=== PATIENT | female | born 1965 | race Caucasian/White ===

== ENCOUNTER → 2018-05-23 17:29 | Outpatient (CLI) | payer MEDICAID ==
[~2018-05-23 17:29] MED LIST: LEVAQUIN750 MG PO; NORCO 7.5/325 T1 TA1 PO; OMEPRAZOLE20 M1 PO; PEPCID AC20 MG PO; PROPRANOLOL HCL20 MG PO; REXULTI1 MG PO; TRAZODONE HCL150 MG PO; ULTRAM50 MG PO; VIBRAMYCIN 100100 MG PO
[2018-06-04 12:49] VITALS: BMI 32.2
== END | disposition home or self-care (01) ==
LOC: D.MAMMO 13:15
DX: Z12.31 Encounter for screening mammogram for malignant neoplasm of breast (principal)

== ENCOUNTER 2018-05-30 09:10 | Inpatient (IN) | payer MEDICAID ==
[~2018-05-30] VITALS: Ht 162.6 cm; Wt 84.5 kg
--- NOTE | ~2018-05-30 | CN ---
PATIENT NAME:GABRIELA RAHMAN MEDICAL RECORD: [id number] : 69 LOCATION:D. D.2128 ADMIT DATE: 05/30/18 ACCOUNT: [id number] CONSULTING PHYSICIAN: MERLYN VICTOR MD REFERRING PHYSICIAN: MARKIE PORTER MD DATE OF CONSULTATION: 06/02/2018 CONSULT REQUESTING PHYSICIAN: Marty Lazo MD REASON FOR CONSULTATION: Pneumonia, right lower lobe; right pleural effusion. HISTORY OF PRESENT ILLNESS: Ms. Rahman is a 52-year-old female who is sick for the last few days. She was treated locally, but not getting any better, came into the ER, found out the patient has a right-sided lower lobe pneumonia and pleural effusion. She still have some pleuritic type of right-sided chest pain, worse with coughing and deep breathing. Also, she has a fever and chill and shortness of breath and mild exertion. She is not wheezing. REVIEW OF SYSTEMS: As in history of present illness. PAST MEDICAL HISTORY: Nonsignificant. ALLERGIES: SHE IS ALLERGIC TO PENICILLIN. MEDICATIONS: On Axtria is reviewed. PERSONAL AND SOCIAL HISTORY: The patient is smoking some time. She is also drinking occasionally, but she is not passing out. FAMILY HISTORY: Noncontributory. PHYSICAL EXAMINATION: GENERAL: Now, the patient is lying comfortably in bed. She is not in acute respiratory distress. VITAL SIGNS: The blood pressure 111/62, pulse is 110, respiration is 19, temperature 99.1, SpO2 is 94% on 2 liters nasal cannula. HEENT: Conjunctivae are pink. Sclerae are not icteric. NECK: Supple, no JVD. CHEST: The chest excursion is minimal on both sides, crackle at the right base. There is dullness on percussion. HEART: Rhythm regular, normal sound, no murmur. ABDOMEN: Soft, bowel sounds present. No hepatosplenomegaly. RECTAL: Deferred. EXTREMITIES: No cyanosis, no clubbing, no pedal edema. LABORATORY DATA: CBC: WBC on admission was 19,000, hemoglobin 11.6, hematocrit 36.4. Chemistry: Sodium 139, potassium 3.7. ABG: The pH is 7.44, pCO2 is 34.4, the bicarbonate is 23.5. IMAGING DATA: CT of the chest; there was no PE, but there was a right lower lobe pneumonia and small right pleural effusion. Repeat chest x-ray showed worsening right-sided pleural effusion. IMPRESSION: 1. Acute hypoxic respiratory failure. CONSULT REPORT [id number] GABRIELA RAHMAN 2. Pneumonia, right lower lobe, most likely community-acquired pneumonia. 3. Pleurisy secondary to pneumonia. 4. Right pleural effusion, which is parapneumonic. 5. Leukocytosis secondary to pneumonia. 6. Tobacco dependence syndrome. RECOMMENDATION: 1. Continue Levaquin. I will add vancomycin and cefepime to cover for Gram-negative alexis as well as questionable MRSA. 2. Proceed with thoracentesis in the morning. 3. Pain control. 4. Supplemental oxygen. 5. Follow up labs and chest radiograph. Hold the Lovenox prior to the procedure. Dr. Lazo, thank you for involving me in the care of Ms. Rahman. TRANSINT:[id number] Voice Confirmation ID: [id number] DOCUMENT ID: [id number] MERLYN VICTOR MD at 1711 CC: [id number] DICTATION DATE: 06/02/18 182 SMUDGER: 06/02/[address] [facility] [address] [place] [id number]
--- NOTE | ~2018-05-30 | MORECARE ---
CASE MANAGEMENT DISCHARGE SUMMARY PATIENT: GABRIELA ARREDONDO UNIT: [id number] ADM DATE: 05/30/18 AGE: 52 : [birth year] SEX: F ROOM/BED: D.2061 AUTHOR: MARILEE,DOC PHYSICIAN: REFERRING PHYSICIAN: MARKIE PORTER MD DATE OF SERVICE: 06/07/18 Discharge Plan Patient Name: GABRIELA ARREDONDO Facility: [facility]:[place] : 1965 Planned Disposition: Home Anticipated Discharge Date: 06/07/18 Discharge Date: 06/07/2018 Expected LOS: 8 Initial Reviewer: [email or web address] Initial Review Date: 06/07/2018 Generated: 06/07/18 6:54 pm Comments DCP- Discharge Planning Updated by [email or web address]: Uma Randall on 06/07/18 4:[address] Patient Name: GABRIELA ARREDONDO Admission Status: ER Accout number: [id number] Admission Date: 05-30-2018 : 1965 Admission Diagnosis:SHORTNESS OF BREATH Attending: MARKIE PORTER Current LOS: 8 Anticipated DC Date: 06-07-2018 Planned Disposition: Home Primary Insurance: [place] [employer] [facility] Discharge Planning Comments: CM MET WITH PATIENT ABOUT DC PLANNING/NEEDS. PATIENT STATES IS DISCHARGING TO HOME TODAY. 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 DENIES ANY NEEDS AT HOME. PATIENT IS INDEPENDANT WITH ADL'S. HAS A WALKER BUT STATES DOESN'T USE IT, STATES HAD IT FROM SOME OTHER TIME. CM WILL FOLLOW AND ASSIST NEEDED WITH DC PLANNING/NEEDS Software Team Leader: Uma Randall DCPIA - Discharge Planning Initial Assessment Updated by [email or web address]: Uma Randall on 06/07/18 5:46 pm * Is the patient Alert and Oriented? Yes * PCP [facility] * Pharmacy [facility] ON [facility] [address] * Preadmission Environment Home with Family * ADLs Independent * Equipment Nebulizer Walker * List name and contact numbers for known caregivers / representatives who currently or will assist patient after discharge: BURT ARREDONDO, * Community resources currently utilized None * Additional services required to return to the preadmission environment? No * Can the patient safely return to the preadmission environment? Yes * Has this patient been hospitalized within the prior 30 days at any hospital? No Last DP export: 06/07/18 4:47 p Patient Name: GABRIELA ARREDONDO Page [id number] at 1754 All edits/amendments must be made on the electronic document DICTATION DATE: 06/07/181752 GEAR CUTTING MACHINE OPERATOR: PRIYA 06/07/181752 RPT#: [id number] DC DATE:06/07/18 STATUS: DIS IN [facility] [address] [place] [address] END OF REPORT
--- NOTE | ~2018-05-30 | MORECARE ---
CASE MANAGEMENT DISCHARGE SUMMARY PATIENT: GABRIELA ARREDONDO UNIT: [id number] ADM DATE: 05/30/18 AGE: 52 : 69 SEX: F ROOM/BED: D.7484 AUTHOR: THOMAS HUNT PHYSICIAN: REFERRING PHYSICIAN: MARKIE PORTER MD DATE OF SERVICE: 06/07/18 Discharge Plan Patient Name: GABRIELA ARREDONDO Facility: [facility]:[place] : 1965 Planned Disposition: Home Anticipated Discharge Date: 06/07/18 Discharge Date: Expected LOS: 8 Initial Reviewer: [email or web address] Initial Review Date: 06/07/2018 Generated: 06/07/18 6:47 pm DCPIA - Discharge Planning Initial Assessment Updated by [email or web address]: Uma Randall on 06/07/18 5:46 pm * Is the patient Alert and Oriented? Yes * PCP [facility] * Pharmacy [facility] ON [facility] * Preadmission Environment Home with Family * ADLs Independent * Equipment Nebulizer Walker * List name and contact numbers for known caregivers / representatives who currently or will assist patient after discharge: BURT ARREDONDO, * Community resources currently utilized None * Additional services required to return to the preadmission environment? No * Can the patient safely return to the preadmission environment? Yes * Has this patient been hospitalized within the prior 30 days at any hospital? No Patient Name: GABRIELA ARREDONDO Page [phone] at 1747 All edits/amendments must be made on the electronic document DICTATION DATE: 06/07/181745 SPIRAL WINDING MACHINE HELPER: PRIYA 06/07/181745 RPT#: [id number] DC DATE: STATUS: ADM IN [facility] [address] [place] [address] END OF REPORT
--- NOTE | ~2018-05-30 | MORECARE ---
CASE MANAGEMENT DISCHARGE SUMMARY PATIENT: GABRIELA ARREDONDO UNIT: [id number] ADM DATE: 05/30/18 AGE: 52 : 69 SEX: F ROOM/BED: D.0838 AUTHOR: MARILEE,DOC PHYSICIAN: REFERRING PHYSICIAN: MARKIE PORTER MD DATE OF SERVICE: 06/09/18 Discharge Plan Patient Name: GABRIELA ARREDONDO Facility: [facility]:[place] : 1965 Planned Disposition: Home Anticipated Discharge Date: 06/07/18 Discharge Date: 06/07/2018 Expected LOS: 8 Initial Reviewer: [email or web address] Initial Review Date: 06/07/2018 Generated: 06/09/18 11:03 am Comments DCP- Discharge Planning Updated by [email or web address]: Uma Randall on 06/07/18 4:[address] Patient Name: GABRIELA ARREDONDO Admission Status: ER Accout number: [id number] Admission Date: 05-30-2018 : 1965 Admission Diagnosis:SHORTNESS OF BREATH Attending: MARKIE PORTER Current LOS: 8 Anticipated DC Date: 06-07-2018 Planned Disposition: Home [place] Insurance[place] [employer] [place] [facility] Discharge Planning Comments: CM MET WITH PATIENT ABOUT DC PLANNING/NEEDS. PATIENT STATES IS DISCHARGING TO HOME TODAY. 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 DENIES ANY NEEDS AT HOME. PATIENT IS INDEPENDANT WITH ADL'S. HAS A WALKER BUT STATES DOESN'T USE IT, STATES HAD IT FROM SOME OTHER TIME. CM WILL FOLLOW AND ASSIST NEEDED WITH DC PLANNING/NEEDS Team Member: Uma Randall DCPIA - Discharge Planning Initial Assessment Updated by [email or web address]: Uma Randall on 06/07/18 5:46 pm * Is the patient Alert and Oriented? Yes * PCP [facility] * Pharmacy [facility] ON [facility] [address] * Preadmission Environment Home with Family * ADLs Independent * Equipment Nebulizer Walker * List name and contact numbers for known caregivers / representatives who currently or will assist patient after discharge: BURT ARREDONDO, * Community resources currently utilized None * Additional services required to return to the preadmission environment? No * Can the patient safely return to the preadmission environment? Yes * Has this patient been hospitalized within the prior 30 days at any hospital? No Last DP export: 06/07/18 4:54 p Patient Name: GABRIELA ARREDONDO Page [phone] at 1004 All edits/amendments must be made on the electronic document DICTATION DATE: 06/09/18 1003 CHEF FRENCH: PRIYA 06/09/18 1003 RPT#: [id number] DC DATE:06/07/18 STATUS: DIS IN [facility] [address] [place] [address] END OF REPORT
[2018-05-30] MEDS ORDERED: ULTRAM50 MG PO (09:15)
[2018-05-30] MEDS ORDERED: NORCO 7.5/325 T1 TA1 PO (10:25)
[2018-05-30] MEDS ORDERED: LEVAQUIN750 MG PO (10:25)
[2018-05-30 12:53] LABS: BASOPHILS 0.1 % (0-2); EOSINOPHILS 0.2 % (0-7); HEMATOCRIT 40.5 % (36.0-48.0); HEMOGLOBIN 13.6 g/dL (12-16); IMMATURE GRANULOCYTES 0.5 % (0-5); MCH 30.4 pg (26.0-34.0); MCHC 33.6 g/dL (31.0-37.0); MCV 90.6 fL (80.0-100.0); MEAN PLATELET VOLUME 9.1 fL (7.4-10.4); MONOCYTES 4.3 % (2-11); NEUTROPHILS 88.9 % (40-80); PLATELET COUNT 336 10x3/uL (130-400); RBC 4.47 10x6/uL (4.00-5.40); RDW 12.4 % (11.5-14.5); WBC 17.5 10x3/uL (4.8-10.8)
[2018-05-30 13:13] LABS: ALBUMIN 3.2 g/dL (3.4-5.0); ALKALINE PHOSPHATASE 89 U/L (46-116); ALT (SGPT) 14 U/L (10-68); BILIRUBIN - TOTAL 0.47 mg/dL (0.2-1.3); CALC OSMOLALITY 260 mosm/kg (275-300); CALCIUM 9.8 mg/dL (8.5-10.1); CARBON DIOXIDE 24.6 mmol/L (21.0-32.0); CHLORIDE - SERUM 93 mmol/L (98-107); CREATININE - SERUM 0.7 mg/dL (0.6-1.3); GLUCOSE 99 mg/dL (74-106); MAGNESIUM - SERUM 1.8 mg/dL (1.8-2.4); POTASSIUM - SERUM 3.7 mmol/L (3.5-5.1); PROTEIN - SERUM 8.3 g/dL (6.4-8.2); SODIUM 131 mmol/L (136-145); UREA NITROGEN 8 mg/dL (7-18); eGFR NON AFRICAN AMERICAN > 90 mL/min (90-120)
[2018-05-30] MEDS ORDERED: TRAZODONE HCL150 MG PO (13:59)
[2018-05-30] MEDS ORDERED: PEPCID AC20 MG PO (14:01)
[2018-05-30] MEDS ORDERED: OMEPRAZOLE20 M1 PO (14:02)
[2018-05-30] MEDS ORDERED: REXULTI1 MG PO (14:03)
[2018-05-30] MEDS ORDERED: PROPRANOLOL HCL20 MG PO (14:06)
[2018-05-30 14:36] VITALS: BP 129/73; BMI 31.6
[2018-05-30 15:43] VITALS: BP 129/79
[2018-05-30 19:58] VITALS: BP 123/66
[2018-05-30 23:30] VITALS: BP 127/68
[2018-05-31 03:50] VITALS: BP 114/54
[2018-05-31 05:50] LABS: BASOPHILS 0.1 % (0-2); EOSINOPHILS 0 % (0-7); HEMATOCRIT 36.8 % (36.0-48.0); HEMOGLOBIN 12.2 g/dL (12-16); IMMATURE GRANULOCYTES 0.4 % (0-5); LYMPHOCYTES 6.6 % (15-50); MCHC 33.2 g/dL (31.0-37.0); MCV 90.6 fL (80.0-100.0); MEAN PLATELET VOLUME 9.7 fL (7.4-10.4); MONOCYTES 6.6 % (2-11); NEUTROPHILS 86.3 % (40-80); PLATELET COUNT 334 10x3/uL (130-400); RBC 4.06 10x6/uL (4.00-5.40); RDW 12.4 % (11.5-14.5)
[2018-05-31 06:15] LABS: CALC OSMOLALITY 273 mosm/kg (275-300); CALCIUM 9.6 mg/dL (8.5-10.1); CARBON DIOXIDE 27.6 mmol/L (21.0-32.0); CHLORIDE - SERUM 99 mmol/L (98-107); CREATININE - SERUM 0.6 mg/dL (0.6-1.3); GLUCOSE 146 mg/dL (74-106); POTASSIUM - SERUM 3.5 mmol/L (3.5-5.1); SODIUM 136 mmol/L (136-145); UREA NITROGEN 10 mg/dL (7-18); eGFR NON AFRICAN AMERICAN > 90 mL/min (90-120)
[2018-05-31 07:50] VITALS: BP 131/76
[2018-05-31 13:47] LABS: APPEARANCE CLEAR (CLEAR); BILIRUBIN NEGATIVE (NEGATIVE); COLOR YELLOW (YELLOW); GLUCOSE NEGATIVE (NEGATIVE); KETONE NEGATIVE (NEGATIVE); NITRITE NEGATIVE (NEGATIVE); PROTEIN NEGATIVE (NEGATIVE); UROBILINOGEN NORMAL (NORMAL)
[2018-05-31 13:49] LABS: BACTERIA MODERATE /hpf (NONE SEEN); EPITHELIAL CELLS 0-5 /hpf (0-5); RED CELLS - URINE 0-5 /hpf (0-5); WHITE CELLS - URINE 0-5 /hpf (0-5)
[2018-05-31 15:11] VITALS: BP 138/71
[2018-05-31 19:45] VITALS: BP 113/62
[2018-05-31 23:50] VITALS: BP 102/44
[2018-06-01 03:45] VITALS: BP 117/62
[2018-06-01 06:21] LABS: BASOPHILS 0.1 % (0-2); EOSINOPHILS 0.6 % (0-7); HEMATOCRIT 35.9 % (36.0-48.0); HEMOGLOBIN 11.7 g/dL (12-16); IMMATURE GRANULOCYTES 0.5 % (0-5); LYMPHOCYTES 16.6 % (15-50); MCH 29.6 pg (26.0-34.0); MCHC 32.6 g/dL (31.0-37.0); MCV 90.9 fL (80.0-100.0); MEAN PLATELET VOLUME 9.8 fL (7.4-10.4); MONOCYTES 7.1 % (2-11); NEUTROPHILS 75.1 % (40-80); PLATELET COUNT 357 10x3/uL (130-400); RBC 3.95 10x6/uL (4.00-5.40); RDW 12.6 % (11.5-14.5); WBC 16.3 10x3/uL (4.8-10.8)
[2018-06-01 06:38] LABS: CALCIUM 8.8 mg/dL (8.5-10.1); CARBON DIOXIDE 27.9 mmol/L (21.0-32.0); CHLORIDE - SERUM 101 mmol/L (98-107); GLUCOSE 100 mg/dL (74-106); SODIUM 138 mmol/L (136-145); eGFR NON AFRICAN AMERICAN 80 mL/min (90-120)
[2018-06-01 06:43] LABS: CALC OSMOLALITY 276 mosm/kg (275-300); CREATININE - SERUM 0.8 mg/dL (0.6-1.3); UREA NITROGEN 14 mg/dL (7-18)
[2018-06-01 08:13] VITALS: BP 114/98
[2018-06-01 11:28] VITALS: BP 121/75
[2018-06-01 16:35] VITALS: BP 112/63
[2018-06-01 20:52] VITALS: BP 99/53
[2018-06-02] VITALS: BP 96/46
[2018-06-02 05:56] LABS: BASOPHILS 0.2 % (0-2); EOSINOPHILS 2.8 % (0-7); HEMATOCRIT 36.4 % (36.0-48.0); HEMOGLOBIN 11.6 g/dL (12-16); IMMATURE GRANULOCYTES 0.7 % (0-5); LYMPHOCYTES 25.7 % (15-50); MCH 29.4 pg (26.0-34.0); MCHC 31.9 g/dL (31.0-37.0); MCV 92.4 fL (80.0-100.0); MEAN PLATELET VOLUME 8.7 fL (7.4-10.4); MONOCYTES 10.4 % (2-11); NEUTROPHILS 60.2 % (40-80); PLATELET COUNT 348 10x3/uL (130-400); RBC 3.94 10x6/uL (4.00-5.40); RDW 12.8 % (11.5-14.5)
[2018-06-02 06:09] LABS: CALC OSMOLALITY 275 mosm/kg (275-300); CALCIUM 8.4 mg/dL (8.5-10.1); CHLORIDE - SERUM 102 mmol/L (98-107); CREATININE - SERUM 0.8 mg/dL (0.6-1.3); GLUCOSE 87 mg/dL (74-106); POTASSIUM - SERUM 3.7 mmol/L (3.5-5.1); SODIUM 139 mmol/L (136-145); UREA NITROGEN 11 mg/dL (7-18); eGFR NON AFRICAN AMERICAN 80 mL/min (90-120)
[2018-06-02 06:12] LABS: WBC 11.3 10x3/uL (4.8-10.8)
[2018-06-02 08:06] VITALS: BP 108/61
[2018-06-02 11:40] VITALS: BP 111/62
[2018-06-02 16:03] VITALS: BP 97/55
[2018-06-02 19:00] VITALS: BP 118/65
[2018-06-03] VITALS (13 sets, daily range): BP systolic 101–138; BP diastolic 49–74
[2018-06-03 05:20] LABS: BASOPHILS 0.3 % (0-2); EOSINOPHILS 2.2 % (0-7); HEMATOCRIT 36.4 % (36.0-48.0); HEMOGLOBIN 11.7 g/dL (12-16); IMMATURE GRANULOCYTES 1.3 % (0-5); LYMPHOCYTES 14.1 % (15-50); MCH 29.5 pg (26.0-34.0); MCHC 32.1 g/dL (31.0-37.0); MCV 91.7 fL (80.0-100.0); MEAN PLATELET VOLUME 8.8 fL (7.4-10.4); MONOCYTES 12.5 % (2-11); NEUTROPHILS 69.6 % (40-80); PLATELET COUNT 380 10x3/uL (130-400); RBC 3.97 10x6/uL (4.00-5.40); RDW 12.6 % (11.5-14.5); WBC 13.6 10x3/uL (4.8-10.8)
[2018-06-03 05:42] LABS: CALC OSMOLALITY 274 mosm/kg (275-300); CALCIUM 8.6 mg/dL (8.5-10.1); CARBON DIOXIDE 28.5 mmol/L (21.0-32.0); CHLORIDE - SERUM 101 mmol/L (98-107); CREATININE - SERUM 0.8 mg/dL (0.6-1.3); GLUCOSE 124 mg/dL (74-106); POTASSIUM - SERUM 3.5 mmol/L (3.5-5.1); SODIUM 138 mmol/L (136-145); eGFR NON AFRICAN AMERICAN 80 mL/min (90-120)
[2018-06-03 06:22] LABS: UREA NITROGEN 7 mg/dL (7-18)
[2018-06-03 06:57] LABS: APTT 35.1 SECONDS (22.8-39.4); INR 1.2 (0.85-1.17); PROTIME 14.7 SECONDS (11.6-15.0)
[2018-06-03 11:51] LABS: PROTEIN - BODY FLUID 4.3 G/DL
[2018-06-03 13:15] LABS: MACROPHAGES BF 16 %; MESOTHELIALS BF 1 %; NEUT - BF 68 %
[2018-06-04 01:09] VITALS: BP 144/67
[2018-06-04 04:48] VITALS: BP 116/58
[2018-06-04 06:12] LABS: BASOPHILS 0.2 % (0-2); EOSINOPHILS 2.2 % (0-7); HEMATOCRIT 38.3 % (36.0-48.0); HEMOGLOBIN 12.7 g/dL (12-16); MCH 30.2 pg (26.0-34.0); MCHC 33.2 g/dL (31.0-37.0); MCV 91.2 fL (80.0-100.0); MEAN PLATELET VOLUME 9.1 fL (7.4-10.4); MONOCYTES 8.7 % (2-11); NEUTROPHILS 74.9 % (40-80); PLATELET COUNT 395 10x3/uL (130-400); RDW 12.8 % (11.5-14.5); WBC 15.8 10x3/uL (4.8-10.8)
[2018-06-04 06:33] LABS: CALC OSMOLALITY 271 mosm/kg (275-300); CALCIUM 8.7 mg/dL (8.5-10.1); CARBON DIOXIDE 27.7 mmol/L (21.0-32.0); CHLORIDE - SERUM 100 mmol/L (98-107); CREATININE - SERUM 0.7 mg/dL (0.6-1.3); GLUCOSE 112 mg/dL (74-106); POTASSIUM - SERUM 3.8 mmol/L (3.5-5.1); SODIUM 136 mmol/L (136-145); eGFR NON AFRICAN AMERICAN > 90 mL/min (90-120)
[2018-06-04 06:34] LABS: UREA NITROGEN 9 mg/dL (7-18)
[2018-06-04 08:09] VITALS: BP 118/57
[2018-06-04 11:25] VITALS: BP 136/65
[2018-06-04 12:49] VITALS: Ht 162.6 cm; Wt 84.5 kg
[2018-06-04 14:21] LABS: AFB SPECIMEN PROCESSING Concentration (()); FUNGUS STAIN Final report (())
[2018-06-04 16:00] VITALS: BP 94/43
[2018-06-04 20:08] LABS: ACID FAST SMEAR Negative (())
[2018-06-04 21:30] VITALS: BP 110/62
[2018-06-05 00:57] VITALS: BP 102/47
[2018-06-05 05:32] VITALS: BP 106/67
[2018-06-05 08:01] VITALS: BP 114/42
[2018-06-05 11:34] LABS: BASOPHILS 0.2 % (0-2); EOSINOPHILS 3.6 % (0-7); HEMATOCRIT 35.7 % (36.0-48.0); HEMOGLOBIN 11.7 g/dL (12-16); IMMATURE GRANULOCYTES 3.9 % (0-5); LYMPHOCYTES 17.7 % (15-50); MCH 29.5 pg (26.0-34.0); MCHC 32.8 g/dL (31.0-37.0); MCV 89.9 fL (80.0-100.0); MEAN PLATELET VOLUME 8.9 fL (7.4-10.4); MONOCYTES 14.2 % (2-11); NEUTROPHILS 60.4 % (40-80); PLATELET COUNT 377 10x3/uL (130-400); RBC 3.97 10x6/uL (4.00-5.40); RDW 12.7 % (11.5-14.5)
[2018-06-05 11:46] LABS: WBC 11.6 10x3/uL (4.8-10.8)
[2018-06-05 11:52] VITALS: BP 104/53
[2018-06-05 11:54] LABS: ALBUMIN 1.6 g/dL (3.4-5.0); ALKALINE PHOSPHATASE 90 U/L (46-116); ALT (SGPT) 20 U/L (10-68); BILIRUBIN - TOTAL 0.21 mg/dL (0.2-1.3); CALC OSMOLALITY 269 mosm/kg (275-300); CALCIUM 8.4 mg/dL (8.5-10.1); CARBON DIOXIDE 30.9 mmol/L (21.0-32.0); CHLORIDE - SERUM 101 mmol/L (98-107); CREATININE - SERUM 0.8 mg/dL (0.6-1.3); GLUCOSE 89 mg/dL (74-106); POTASSIUM - SERUM 3.8 mmol/L (3.5-5.1); PROTEIN - SERUM 5.8 g/dL (6.4-8.2); SODIUM 136 mmol/L (136-145); UREA NITROGEN 11 mg/dL (7-18); eGFR NON AFRICAN AMERICAN 80 mL/min (90-120)
[2018-06-05 15:20] VITALS: BP 92/55
[2018-06-05 21:34] VITALS: BP 106/43
[2018-06-06 01:20] VITALS: BP 107/49
[2018-06-06 06:22] LABS: BASOPHILS 0.2 % (0-2); EOSINOPHILS 3.4 % (0-7); HEMATOCRIT 34.9 % (36.0-48.0); HEMOGLOBIN 11.3 g/dL (12-16); IMMATURE GRANULOCYTES 3.8 % (0-5); LYMPHOCYTES 19.5 % (15-50); MCH 29.1 pg (26.0-34.0); MCHC 32.4 g/dL (31.0-37.0); MCV 89.9 fL (80.0-100.0); MONOCYTES 16.6 % (2-11); NEUTROPHILS 56.5 % (40-80); PLATELET COUNT 349 10x3/uL (130-400); RBC 3.88 10x6/uL (4.00-5.40); RDW 12.9 % (11.5-14.5); WBC 10.8 10x3/uL (4.8-10.8)
[2018-06-06 06:38] VITALS: BP 109/58
[2018-06-06 06:39] LABS: ALBUMIN 1.6 g/dL (3.4-5.0); ALKALINE PHOSPHATASE 93 U/L (46-116); CALC OSMOLALITY 272 mosm/kg (275-300); CALCIUM 8.5 mg/dL (8.5-10.1); CARBON DIOXIDE 28.4 mmol/L (21.0-32.0); CHLORIDE - SERUM 101 mmol/L (98-107); CREATININE - SERUM 0.6 mg/dL (0.6-1.3); GLUCOSE 93 mg/dL (74-106); POTASSIUM - SERUM 3.7 mmol/L (3.5-5.1); PROTEIN - SERUM 5.7 g/dL (6.4-8.2); SODIUM 137 mmol/L (136-145); UREA NITROGEN 10 mg/dL (7-18); eGFR NON AFRICAN AMERICAN > 90 mL/min (90-120)
[2018-06-06 06:40] LABS: ALT (SGPT) 31 U/L (10-68)
[2018-06-06 09:41] VITALS: BP 101/44
[2018-06-06 13:11] VITALS: BP 97/47
[2018-06-06 16:47] VITALS: BP 112/60
[2018-06-06 20:00] VITALS: BP 91/50
[2018-06-07] VITALS: BP 97/46
[2018-06-07 04:00] VITALS: BP 94/48
[2018-06-07 05:06] LABS: BASOPHILS 0.5 % (0-2); HEMOGLOBIN 11.2 g/dL (12-16); MCH 28.9 pg (26.0-34.0); MCV 90.4 fL (80.0-100.0); MEAN PLATELET VOLUME 8.7 fL (7.4-10.4); MONOCYTES 12.9 % (2-11); NEUTROPHILS 55.6 % (40-80); PLATELET COUNT 415 10x3/uL (130-400); RBC 3.87 10x6/uL (4.00-5.40); WBC 9.4 10x3/uL (4.8-10.8)
[2018-06-07 05:38] LABS: ALBUMIN 1.7 g/dL (3.4-5.0); ALKALINE PHOSPHATASE 104 U/L (46-116); CALCIUM 8.4 mg/dL (8.5-10.1); CARBON DIOXIDE 28.9 mmol/L (21.0-32.0); CHLORIDE - SERUM 101 mmol/L (98-107); CREATININE - SERUM 0.7 mg/dL (0.6-1.3); GLUCOSE 91 mg/dL (74-106); MAGNESIUM - SERUM 1.8 mg/dL (1.8-2.4); POTASSIUM - SERUM 3.3 mmol/L (3.5-5.1); PROTEIN - SERUM 5.7 g/dL (6.4-8.2); SODIUM 139 mmol/L (136-145); eGFR NON AFRICAN AMERICAN > 90 mL/min (90-120)
[2018-06-07 05:41] LABS: ALT (SGPT) 23 U/L (10-68); CALC OSMOLALITY 275 mosm/kg (275-300); UREA NITROGEN 7 mg/dL (7-18)
[2018-06-07 09:50] VITALS: BP 103/43
[2018-06-07] MEDS ORDERED: VIBRAMYCIN 100100 MG PO (14:19)
[2018-06-07 16:40] VITALS: BP 86/41
== END 2018-06-07 17:49 | disposition home or self-care (01) | DRG 177 ==
LOC: D.ER 09:10 → D.M2 12:26 → D.EDHOLD 12:26 → D.M2 12:28
PROVIDERS: Emergency Medicine; Family Medicine; Internal Medicine Nephrology; Internal Medicine Pulmonary Disease; Radiology Diagnostic Radiology
PROC: 3E0L3GC Introduction of Other Therapeutic Substance into Pleural Cavity, Percutaneous Approach (ICD-10-PCS; 2018-06-03)
PROC: 0W9930Z Drainage of Right Pleural Cavity with Drainage Device, Percutaneous Approach (ICD-10-PCS; principal; 2018-06-03 10:15)
DX: J15.6 Pneumonia due to other Gram-negative bacteria (principal); J96.01 Acute respiratory failure with hypoxia; J90 Pleural effusion, not elsewhere classified; F17.213 Nicotine dependence, cigarettes, with withdrawal; N39.0 Urinary tract infection, site not specified; F10.10 Alcohol abuse, uncomplicated

== ENCOUNTER → 2018-09-05 07:25 | Outpatient (CLI) | payer MEDICAID ==
[2018-06-04 12:49] VITALS: BMI 32.2
== END | disposition home or self-care (01) ==
LOC: D.RT 07:25
PROVIDERS: ATTEND Internal Medicine Pulmonary Disease
DX: R06.00 Dyspnea, unspecified (principal)